=== PATIENT | female | born 1980 | race American Indian/Alaskan Native ===

== ENCOUNTER 2019-09-25 19:42 | Outpatient (CLI) | payer MEDICAID ==
[2019-09-25] MEDS ORDERED: LACTATED RINGERS 500 ML IV ONE (23:07)
[2019-09-25] MEDS ORDERED: TERBUTALINE 1 MG/1 ML INJ SUB-Q SCH (23:45)
--- NOTE | 2019-09-26 00:56 | Ultrasound Report ---
ULTRASOUND BIOPHYSICAL PROFILE INDICATION / CLINICAL INFORMATION: labor and r/o abruption. COMPARISON: None available. FINDINGS: BREATHING MOVEMENT = 2 GROSS BODY MOVEMENT = 2 TONE = 2 QUALITATIVE AMNIOTIC FLUID VOLUME = 2 TOTAL BIOPHYSICAL SCORE = 8/8 PRESENTATION: Breech. HEART RATE (beats per minute): 145 IMPRESSION: 1. biophysical profile = 05/30 no evidence of placental abruption. Signer Name: Ga Garcia MD Signed: 09/26/2019 12:51 AM Workstation Name: Interview
[2019-09-26 01:01] LABS: Basophils % (Auto) 0.2 % (0.0-1.8); Eosinophils # (Auto) 0.1 K/mm3 (0.0-0.4); Eosinophils % (Auto) 1.2 % (0.0-4.3); Hematocrit 37.8 % (30.3-42.9); Lymphocytes # (Auto) 1.6 K/mm3 (1.2-5.4); Lymphocytes % (Auto) 19.4 % (13.4-35.0); Mean Corpuscular HGB Conc 35 % (30-34); Mean Corpuscular Volume 95 fl (79-97); Monocytes # (Auto) 0.5 K/mm3 (0.0-0.8); Platelet Count 134 K/mm3 (140-440); Red Cell Distribution Width 13.8 % (13.2-15.2)
[2019-09-26 01:04] LABS: Amphetamine Screen,Urine PRESUMPTIVE NEGATIVE; Benzodiazepines Screen,Urine PRESUMPTIVE NEGATIVE; Cocaine Screen,Urine PRESUMPTIVE NEGATIVE; Methadone Screen,Urine PRESUMPTIVE NEGATIVE; Opiate Screen,Urine PRESUMPTIVE NEGATIVE
[2019-09-26 01:07] LABS: Bacteria,Urine 1+ /HPF (Negative); Bilirubin,Urine NEG (Negative); Blood,Urine NEG (Negative); Color,Urine Yellow (Yellow); Protein,Urine <15 mg/dL mg/dL (Negative); Urobilinogen,Urine < 2.0 mg/dL (<2.0)
[2019-09-26] MEDS: LACTATED RINGERS 1,000 ML IV SCH ×2 (01:19→04:03)
[2019-09-26 01:34] LABS: Cannabinoid Screen,Urine PRESUMPTIVE POSITIVE
[2019-09-26] MEDS ORDERED: AMPICILLIN/NS 2 GM/100 ML 2 GM/100 ML BAG IV ONE ×2 (03:35→04:01)
[2019-09-26] MEDS ORDERED: AMPICILLIN/NS 1 GM/50 ML 1 GM/50 ML BAG IV SCH (08:00)
[2019-09-26 09:08] VITALS: BP 123/66
== END 2019-09-26 10:00 | disposition home or self-care (01) ==
LOC: TRG 19:42 → LD 09-26 05:01 → TRG 09-26 10:00
PROVIDERS: ATTEND Obstetrics & Gynecology
DX: O62.9 Abnormality of forces of labor, unspecified (principal); O26.853 Spotting complicating pregnancy, third trimester; O09.523 Supervision of elderly multigravida, third trimester; Z3A.32 32 weeks gestation of pregnancy
CPT/HCPCS: 36415; 76815; 76819; 80307; 81001; 85025; 87086; 96361; 96365; 96366; 96372; J0290; J3105; J7120